=== PATIENT | female | born 1990 | race Two or more races ===

== ENCOUNTER 2019-01-30 16:16 | Emergency (ER) | payer MEDICAID ==
[~2019-01-30] VITALS: Ht 154.9 cm; Wt 87.0 kg
[2019-01-30 16:41] VITALS: BP 131/90
[2019-01-30] MEDS ORDERED: CEFT1FRO2 IV (17:02)
--- NOTE | 2019-01-30 17:31 | NUR ---
PICC LINE DRESSING CHANGED PER [facility] PROTOCOL. CATH TO HUB MEASURES 7 INCHES.
== END 2019-01-30 17:35 | disposition home or self-care (01) ==
LOC: ED 17:29
DX: Z45.2 Encounter for adjustment and management of vascular access device (principal)
CPT/HCPCS: 99282